=== PATIENT | female | born 1980 | race Two or more races ===

== ENCOUNTER 2020-05-12 16:44 | Emergency (ER) | payer MEDICAID ==
[~2020-05-12] VITALS: Ht 154.9 cm; Wt 77.0 kg
[2020-05-12 17:44] VITALS: BP 130/84
== END 2020-05-12 17:38 | disposition home or self-care (01) ==
LOC: ER 16:45
DX: Z02.89 Encounter for other administrative examinations (principal); H92.01 Otalgia, right ear; F17.200 Nicotine dependence, unspecified, uncomplicated
CPT/HCPCS: 99281

== ENCOUNTER 2020-10-01 11:15 | Emergency (ER) | payer MEDICAID ==
[~2020-10-01] VITALS: Ht 152.4 cm; Wt 77.2 kg
[2020-10-01 11:52] VITALS: BP 117/81
[2020-10-01 12:25] LABS: CLARITY,URINE CLEAR (Clear); COLOR,URINE YELLOW (Yellow); GLUCOSE, URINE NEGATIVE (Neg); KETONES,URINE NEGATIVE (Neg); LEUKOCYTE ESTERASE ,URINE MODERATE (Neg); NITRITES, URINE NEGATIVE (Neg); OCCULT BLOOD,URINE LARGE (Neg); PROTEIN,URINE NEGATIVE (Neg); URINE HCG NEGATIVE (NEG); UROBILINOGEN,URINE 0.2 E.U/dL (0.2-1.0)
[2020-10-01 12:31] LABS: UA COLLECTION TYPE CLN CATCH MIDSTREAM
[2020-10-01 12:32] LABS: BACTERIA,URINE FEW /HPF (Neg); MUCUS STRANDS FEW /LPF (Neg); RBC,URINE 0-2 /HPF (0-2); SQUAMOUS EPITHELIAL CELL,UR MODERATE /LPF (FEW)
[2020-10-01] MEDS ORDERED: SULF1TAB49 PO (13:17)
[2020-10-01] MEDS ORDERED: PHEN-824 PO (13:37)
== END 2020-10-01 13:41 | disposition home or self-care (01) ==
LOC: ER 11:16
DX: N39.0 Urinary tract infection, site not specified (principal); Z79.899 Other long term (current) drug therapy; Z90.49 Acquired absence of other specified parts of digestive tract
CPT/HCPCS: 81001; 81025; 87077; 87088; 87186; 99283